=== PATIENT | male | born 2000 | race Caucasian/White ===

== ENCOUNTER 2023-09-01 06:40 | Emergency (ER) | payer MEDICAID ==
[~2023-09-01] VITALS: Ht 175.3 cm; Wt 102.8 kg
[2023-09-01 06:51] VITALS: BP 147/105; PULSE 76; RESP 18; TEMP 97.5; O2SAT 99
[2023-09-01] MEDS ORDERED: CEPH-585 PO (07:27)
[2023-09-01] MEDS ORDERED: SULF1TAB45 PO (07:27)
== END 2023-09-01 07:31 | disposition home or self-care (01) ==
LOC: ER 06:41
DX: L03.116 Cellulitis of left lower limb (principal); F17.210 Nicotine dependence, cigarettes, uncomplicated; Z79.2 Long term (current) use of antibiotics; Z79.899 Other long term (current) drug therapy
CPT/HCPCS: 99283